=== PATIENT | female | born 1985 | race Caucasian/White ===

== ENCOUNTER 2022-06-30 06:47 | Emergency (ER) | payer OTHER ==
[2022-06-30] MEDS ORDERED: Morphine 2 MG/ML SYRINGE IVPUSH ONE (07:30)
[2022-06-30] MEDS ORDERED: ceFAZolin 1 GM in Sodium Chloride 0.9% 50 ML IV STA (07:30)
[2022-06-30 07:47] LABS: ESTIMATED GFR 84 mL/min (>60)
[2022-06-30] MEDS ORDERED: ceFAZolin 1 GM Vial IVPUSH ONE (07:51)
[2022-06-30] MEDS: ceFAZolin 1 GM Vial ONE ×2 (07:53→07:54)
== END 2022-06-30 08:10 ==
LOC: FB.ED 06:47
DX: S62.521A Displaced fracture of distal phalanx of right thumb, initial encounter for closed fracture (principal); Z79.899 Other long term (current) drug therapy; W23.1XXA Caught, crushed, jammed, or pinched between stationary objects, initial encounter; Y99.0 Civilian activity done for income or pay
CPT/HCPCS: 36415; 73140; 80048; 85025; 96374; 96375; 99284; J0690; J2270